=== PATIENT | male | born 1960 | race Caucasian/White ===

== ENCOUNTER → 2018-11-15 | Day surgery (SDC) | payer BC ==
[~2018-11-15] MED LIST: Lactated Ringers 1,000 ML IV SCH; Propofol 200 MG/20 ML SDV IV ONE
--- NOTE | 2018-11-18 09:30 | OR ---
DATE OF OPERATION: 11/15/2018 PREOPERATIVE DIAGNOSIS: HISTORY OF POLYPS. POSTOPERATIVE DIAGNOSIS: HISTORY OF POLYPS. SURGEON: Hang Patel MD PROCEDURE: DIAGNOSTIC COLONOSCOPY WITH SNARE POLYPECTOMY X1. ANESTHESIA: MAC via [employer]TRATION PL[employer] OPERATOR. COMPLICATIONS: None. SPECIMEN: Tubular adenoma, greater than 0.5 cm, rectosigmoid junction. FINDINGS: 1. Full-length colonoscopy. 2. Tubular adenoma, rectosigmoid junction, approximately 7 to 8 mm. RECOMMENDATIONS: Followup colonoscopy in 5 years. INDICATIONS: The patient has a history of polyps removed in the past. He was sent by Altaf Cano for a diagnostic scope. DESCRIPTION OF PROCEDURE: The patient was prepped and draped, placed in the left lateral decubitus position. A lubricated Olympus colonoscope was inserted and easily advanced to the cecum. Direct visualization of the ileocecal valve and appendiceal orifice was accomplished. The bowel prep was fine. There was a lot of liquid stool present, but all easily suctioned upon withdrawal. The cecum, ascending, and transverse colon were completely unremarkable. Throughout the left colon, there were no signs of any significant diverticula, bleeding sites, colitis, or inflammatory changes. The sigmoid was essentially unremarkable. At the rectosigmoid junction, around 20 cm, the patient had a stalked tubular adenoma, approximately 7 to 8 mm in size, removed with a snare and suctioned into polyp trap #1 without difficulty. The rectal vault appeared benign. He had a very shallow rectum, it was hard to hold air in him, and was hard to retroflex the scope. With direct withdrawal, no gross abnormalities were visualized. Air was suctioned as best as possible, scope removed without complication. STEFANIA/ABELARDO /[id number]
== END ==
LOC: CC.SDS 09:42
PROVIDERS: ATTEND Family Medicine
DX: Z12.11 Encounter for screening for malignant neoplasm of colon (principal); D12.7 Benign neoplasm of rectosigmoid junction; I10 Essential (primary) hypertension; E78.5 Hyperlipidemia, unspecified; E55.9 Vitamin D deficiency, unspecified; G20 Parkinson's disease; G47.30 Sleep apnea, unspecified; N40.0 Benign prostatic hyperplasia without lower urinary tract symptoms; N52.9 Male erectile dysfunction, unspecified; Z87.891 Personal history of nicotine dependence; Z86.010 Personal history of colon polyps; Z79.899 Other long term (current) drug therapy
CPT/HCPCS: 45385; J2704

== ENCOUNTER 2023-12-14 10:11 | Day surgery (SDC) | payer BC ==
[2023-12-14] MEDS: Lactated Ringers 1,000 ML IV SCH (10:38)
[2023-12-14] MEDS ORDERED: Propofol 200 MG/20 ML SDV ONE ×2 (10:55)
[2023-12-14] MEDS ORDERED: Ketamine 200 MG/20 ML MDV ONE (10:55)
[2023-12-14] MEDS ORDERED: fentaNYL 50 MCG/ML SDV ONE (10:55)
[2023-12-14] MEDS ORDERED: Midazolam 1 MG/ML 2 ML SDV ONE (10:55)
== END 2023-12-14 12:55 | disposition home or self-care (01) ==
LOC: CC.SDS 10:11
PROVIDERS: ATTEND Family Medicine
DX: Z12.11 Encounter for screening for malignant neoplasm of colon (principal); D12.7 Benign neoplasm of rectosigmoid junction; K57.30 Diverticulosis of large intestine without perforation or abscess without bleeding; I10 Essential (primary) hypertension; E78.5 Hyperlipidemia, unspecified; G20.A1 Parkinson's disease without dyskinesia, without mention of fluctuations; N40.0 Benign prostatic hyperplasia without lower urinary tract symptoms; Z87.891 Personal history of nicotine dependence; Z79.82 Long term (current) use of aspirin; Z79.899 Other long term (current) drug therapy; Z91.018 Allergy to other foods; Z86.010 Personal history of colon polyps
CPT/HCPCS: 00811; J2250; J2704; J3010; J3490; J7120

== ENCOUNTER 2025-05-15 20:33 | Observation (INO) | payer BC ==
[2025-05-15 21:04] LABS: BASOPHILS ABSOLUTE AUTO 0.02 10^3/uL (0.00-0.50); BASOPHILS PERCENT AUTO 0.2 % (0-1); EOSINOPHILS ABSOLUTE AUTO 0.08 10^3/uL (0.00-1.50); EOSINOPHILS PERCENT AUTO 0.6 % (0-6); IMMATURE GRAN ABSOLUTE AUTO 0.02 10^3/uL (0.00-0.49); IMMATURE GRAN PERCENT AUTO 0.2 % (0.0-4.9); LYMPHOCYTES ABSOLUTE AUTO 0.68 10^3/uL (0.60-5.00); LYMPHOCYTES PERCENT AUTO 5.4 % (24-44); MONOCYTES ABSOLUTE AUTO 0.94 10^3/uL (0.00-1.50); MONOCYTES PERCENT AUTO 7.4 % (0-10); NEUTROPHILS ABSOLUTE AUTO 10.96 x10^3/uL (1.80-8.00); NEUTROPHILS PERCENT AUTO 86.2 % (41-71); PLATELET COUNT,PLT 164 10^3/uL (150-400); RED BLOOD CELL COUNT 3.48 x10^6/uL (4.50-6.00); WHITE BLOOD CELL COUNT,WBC 12.7 10^3/uL (4.0-11.0)
[2025-05-15 21:17] LABS: ALANINE AMINOTRANSFERASE,ALT 7.0 U/L (12-78); ASPARTATE AMNIOTRANSFERASE,AST 20.0 U/L (15-37); BILIRUBIN TOTAL 0.5 mg/dL (0.0-1.0); BLOOD UREA NITROGEN,BUN 27.0 mg/dL (7-18); CARBON DIOXIDE,CO2 30.0 mmol/L (21-32); CHLORIDE,CL 104.0 mEq/L (98-106); CREATININE 1.0 mg/dL (0.7-1.3); EST CRCL DRUG DOSING (CG) 77.06 mL/min; GLUCOSE RANDOM 123.0 mg/dL (75-99); POTASSIUM,K 4.1 mEq/L (3.5-5.0); PROTEIN TOTAL,TP 5.7 g/dL (6.4-8.2); SODIUM,NA 142.0 mEq/L (136-145)
[2025-05-15 21:23] LABS: ESTIMATED GFR 84.0 mL/min (>=60)
[2025-05-15] MEDS ORDERED: Sodium Chloride 0.9% 10 ML Syringe FLUSH PRN (23:14)
[2025-05-15] MEDS ORDERED: Ondansetron 4 MG Tab.DIS PO PRN (23:14)
[2025-05-15] MEDS ORDERED: Ondansetron 4 MG/2 ML SDV IV PRN (23:14)
[2025-05-16 07:35] LABS: BASOPHILS ABSOLUTE AUTO 0.03 10^3/uL (0.00-0.50); BASOPHILS PERCENT AUTO 0.2 % (0-1); EOSINOPHILS ABSOLUTE AUTO 0.09 10^3/uL (0.00-1.50); EOSINOPHILS PERCENT AUTO 0.7 % (0-6); IMMATURE GRAN ABSOLUTE AUTO 0.03 10^3/uL (0.00-0.49); IMMATURE GRAN PERCENT AUTO 0.2 % (0.0-4.9); LYMPHOCYTES ABSOLUTE AUTO 1.05 10^3/uL (0.60-5.00); LYMPHOCYTES PERCENT AUTO 8.2 % (24-44); MONOCYTES ABSOLUTE AUTO 0.89 10^3/uL (0.00-1.50); MONOCYTES PERCENT AUTO 6.9 % (0-10); NEUTROPHILS ABSOLUTE AUTO 10.78 x10^3/uL (1.80-8.00); NEUTROPHILS PERCENT AUTO 83.8 % (41-71); PLATELET COUNT,PLT 147 10^3/uL (150-400); RED BLOOD CELL COUNT 3.42 x10^6/uL (4.50-6.00); WHITE BLOOD CELL COUNT,WBC 12.9 10^3/uL (4.0-11.0)
[2025-05-16 07:45] LABS: ALANINE AMINOTRANSFERASE,ALT 10.0 U/L (12-78); ASPARTATE AMNIOTRANSFERASE,AST 28.0 U/L (15-37); BILIRUBIN TOTAL 0.8 mg/dL (0.0-1.0); BLOOD UREA NITROGEN,BUN 25.0 mg/dL (7-18); CARBON DIOXIDE,CO2 33.0 mmol/L (21-32); CHLORIDE,CL 99.0 mEq/L (98-106); CREATININE 0.9 mg/dL (0.7-1.3); EST CRCL DRUG DOSING (CG) 85.62 mL/min; GLUCOSE RANDOM 110.0 mg/dL (75-99); POTASSIUM,K 3.7 mEq/L (3.5-5.0); PROTEIN TOTAL,TP 5.9 g/dL (6.4-8.2); SODIUM,NA 141.0 mEq/L (136-145)
[2025-05-16 07:46] LABS: ESTIMATED GFR 95.0 mL/min (>=60)
[2025-05-16] MEDS ORDERED: Chlorhexidine Gluconate 0.12% Oral Rinse 15 ML Cup PO PRN (09:02)
[2025-05-16] MEDS ORDERED: RASAGILINE MESYLATE 1 MG PO SCH (09:15)
[2025-05-16] MEDS ORDERED: Cholecalciferol (Vitamin D3) 5,000 UNIT Tab PO SCH (09:15)
[2025-05-16] MEDS ORDERED: Potassium Chloride 20 MEQ Tab.ER PO SCH (09:15)
[2025-05-16] MEDS ORDERED: LEVODOPA 42 MG IH SCH (09:15)
[2025-05-16] MEDS ORDERED: RIVASTIGMINE 13.3 MG TRDERM SCH (09:15)
[2025-05-16] MEDS ORDERED: PAROXETINE HCL 30 MG PO SCH (09:15)
[2025-05-16] MEDS ORDERED: Hydrochlorothiazide/Triamterene 25-37.5 Tab PO SCH (09:15)
[2025-05-16] MEDS ORDERED: Divalproex Sodium Delayed-Release 250 MG Tab.CR PO SCH (10:30)
[2025-05-16] MEDS ORDERED: Non-Formulary Medication 1 Each (Carbidopa/Levodopa [Rytary Er 48.75 Mg-195 Mg Cap] 1 EACH PO SCH (10:30)
[2025-05-17] MEDS ORDERED: Non-Formulary Medication 1 Each (Carbidopa/Levodopa [Rytary Er 48.75 Mg-195 Mg Cap] 1 EACH PO SCH (06:30)
== END 2025-05-16 11:00 | disposition home or self-care (01) ==
LOC: CC.ED 20:33 → CC.MS 22:20 → UNDOADMOB 22:27 → UNDODISOB 05-16 11:00
PROVIDERS: ADMIT Physician Assistant Medical; ATTEND Physician Assistant Medical
DX: K62.5 Hemorrhage of anus and rectum (principal); I10 Essential (primary) hypertension; Z79.82 Long term (current) use of aspirin; Z79.899 Other long term (current) drug therapy; Z91.018 Allergy to other foods
CPT/HCPCS: 36415; 80053; 85025; 99223; 99239; 99284; A9270-GY; G0378

== ENCOUNTER 2025-05-19 21:46 | Observation (INO) | payer BC ==
[2025-05-19] MEDS ORDERED: Sodium Chloride 0.9% 10 ML Syringe FLUSH PRN (21:48)
[2025-05-19] MEDS ORDERED: Ondansetron 4 MG Tab.DIS PO PRN (21:48)
[2025-05-19] MEDS ORDERED: Ondansetron 4 MG/2 ML SDV IV PRN (21:48)
[2025-05-19] MEDS: Iopamidol 755 Mg/ML 100 ML Bottle IVPUSH ONE (22:30)
[2025-05-19] MEDS ORDERED: Chlorhexidine Gluconate 0.12% Oral Rinse 15 ML Cup PO PRN (22:51)
[2025-05-19] MEDS ORDERED: LEVODOPA 42 MG IH PRN (22:51)
[2025-05-20] MEDS: RYTARY PO SCH ×2 (06:07→10:48)
[2025-05-20] MEDS: Potassium Chloride 20 MEQ Tab.ER PO SCH (07:21)
[2025-05-20] MEDS: Hydrochlorothiazide/Triamterene 25-37.5 Tab PO SCH (07:23)
[2025-05-20] MEDS: RASAGILINE 1 MG PO SCH (07:24)
[2025-05-20] MEDS: VITAMIN D3 PO SCH (07:25)
[2025-05-20] MEDS ORDERED: RIVASTIGMINE 13.3 MG TRDERM SCH (08:00)
[2025-05-20] MEDS ORDERED: VITAMIN D3 PO SCH (08:00)
[2025-05-20 08:07] LABS: BASOPHILS ABSOLUTE AUTO 0.04 10^3/uL (0.00-0.50); BASOPHILS PERCENT AUTO 0.9 % (0-1); EOSINOPHILS ABSOLUTE AUTO 0.18 10^3/uL (0.00-1.50); EOSINOPHILS PERCENT AUTO 3.9 % (0-6); IMMATURE GRAN ABSOLUTE AUTO 0.02 10^3/uL (0.00-0.49); IMMATURE GRAN PERCENT AUTO 0.4 % (0.0-4.9); LYMPHOCYTES ABSOLUTE AUTO 0.90 10^3/uL (0.60-5.00); LYMPHOCYTES PERCENT AUTO 19.5 % (24-44); MONOCYTES ABSOLUTE AUTO 0.39 10^3/uL (0.00-1.50); MONOCYTES PERCENT AUTO 8.4 % (0-10); NEUTROPHILS ABSOLUTE AUTO 3.09 x10^3/uL (1.80-8.00); NEUTROPHILS PERCENT AUTO 66.9 % (41-71); PLATELET COUNT,PLT 79 10^3/uL (150-400); RED BLOOD CELL COUNT 2.79 x10^6/uL (4.50-6.00); WHITE BLOOD CELL COUNT,WBC 4.6 10^3/uL (4.0-11.0)
[2025-05-20 08:14] LABS: ALANINE AMINOTRANSFERASE,ALT 7.0 U/L (12-78); ASPARTATE AMNIOTRANSFERASE,AST 18.0 U/L (15-37); BILIRUBIN TOTAL 0.8 mg/dL (0.0-1.0); BLOOD UREA NITROGEN,BUN 12.0 mg/dL (7-18); CARBON DIOXIDE,CO2 33.0 mmol/L (21-32); CHLORIDE,CL 106.0 mEq/L (98-106); CREATININE 0.7 mg/dL (0.7-1.3); EST CRCL DRUG DOSING (CG) 113.55 mL/min; GLUCOSE RANDOM 91.0 mg/dL (75-99); POTASSIUM,K 4.1 mEq/L (3.5-5.0); PROTEIN TOTAL,TP 5.8 g/dL (6.4-8.2); SODIUM,NA 145.0 mEq/L (136-145)
[2025-05-20 08:17] LABS: ESTIMATED GFR 103.0 mL/min (>=60)
[2025-05-20] MEDS ORDERED: [UNRECOGNIZED DRUG - OTHER] PO SCH (10:30)
[2025-05-20] MEDS ORDERED: CARBIDOPA PO SCH (10:30)
[2025-05-20] MEDS ORDERED: LEVODOPA PO SCH (10:30)
[2025-05-20] MEDS: Divalproex Sodium Delayed-Release 250 MG Tab.CR PO SCH (10:47)
== END 2025-05-20 11:10 | disposition home or self-care (01) ==
LOC: UNDOADMOB 21:46 → CC.MS 21:46 → UNDOADMOB 21:48
PROVIDERS: ADMIT Physician Assistant Medical; ATTEND Physician Assistant Medical
DX: D62 Acute posthemorrhagic anemia (principal); I10 Essential (primary) hypertension; Z91.018 Allergy to other foods; Z79.899 Other long term (current) drug therapy
CPT/HCPCS: 36415; 74177; 80053; 84153; 85025; 99223; 99239; A9270-GY; G0378; Q9967